=== PATIENT | female | born 1955 | race African-American/Black ===

== ENCOUNTER 2017-04-29 17:00 | Emergency (ER) | payer BC ==
[2017-04-29 17:32] VITALS: BP 146/86; PULSE 86; TEMP 100.6; BMI 28.5
--- NOTE | 2017-04-29 17:44 | PDOC ---
History of Present Illness - General History Source: Patient Exam Limitations: No Limitations - History of Present Illness Initial Comments: 04/29/17 18:10 The patient is a 61 year old female, with a significant past medical history of hypertension, who presents to the emergency department with flu-like symptoms since this morning. The patient reports associated subjective fever, chills, diffuse body aches, dry cough, diaphoresis and sore throat. Patient reports taking an over the counter cough suppressant for her symptoms with mild relief. She reports nausea, 1 episode of nonbloody/nonbilious emesis, and diarrhea, but denies any abdominal pain or constipation. Patient reports she did receive her flu shot this year. Patient endorses chest pain secondary to coughing, but denies any shortness of breath, or palpitations. She denies any flank pain, dysuria, hematuria, frequency, or urgency. Patient reports she has been eating well. She denies any recent travel or sick contacts. Allergies: NKDA Past Surgical History: None reported Social History: Non smoker. No ETOH or recreational drug use. <Sherley Daniel - Last Filed: 04/29/17 18:10> <Alexander Payne - Last Filed: 05/03/17 07:54> - General Chief Complaint: Cold Symptoms Stated Complaint: FLU Time Seen by Provider: 04/29/17 17:43 Past History <Sherley Daniel - Last Filed: 04/29/17 18:10> - Past Medical History Anemia: No Asthma: No Cancer: No Cardiac Disorders: No CVA: No COPD: No CHF: No Dementia: No Diabetes: No GI Disorders: Yes (H/O POLYPS) Disorders: No HTN: Yes Hypercholesterolemia: No Liver Disease: No Seizures: No Thyroid Disease: No - Surgical History Abdominal Surgery: No Appendectomy: No Cardiac Surgery: No Cholecystectomy: No Lung Surgery: No Neurologic Surgery: No Orthopedic Surgery: No - Immunization History Immunization Up to Date: Yes - Suicide/Smoking/Psychosocial Hx Smoking Status: Yes Smoking History: Never smoked Have you smoked in the past 12 months: No Number of Cigarettes Smoked Daily: 0 Cigars Per Day: 0 Hx Alcohol Use: No Drug/Substance Use Hx: No Substance Use Type: None Hx Substance Use Treatment: No <Alexander Payne - Last Filed: 05/03/17 07:54> - Past Medical History Allergies/Adverse Reactions: Allergies Allergy/AdvReac Type Severity Reaction Status Date / Time No Known Allergies Allergy Verified 04/29/17 17:24 Home Medications: Ambulatory Orders Losartan/Hydrochlorothiazide [Losartan-Hctz 100-12.5 mg Tab] 1 each PO DAILY 19/03 Aspirin [Aspirin EC] 81 mg PO DAILY 04/29/17 Cholecalciferol (Vitamin D3) [Vitamin D3] 2,000 unit PO DAILY 04/29/17 Metoprolol Succinate [Toprol XL -] 25 mg PO DAILY 04/29/17 Multivitamin/Iron/Folic Acid [Centrum Women Tablet] 1 each PO DAILY 04/29/17 Ondansetron [Zofran Odt -] 4 mg SL TID PRN #10 od.tablet 04/29/17 Oseltamivir Phosphate [Tamiflu] 75 mg PO BID #10 capsule 04/29/17 Vitamin B Complex [B Complex] 1 each PO DAILY 04/29/17 Review of Systems - Review of Systems Able to Perform ROS?: Yes Comments:: 04/29/17 18:10 CONSTITUTIONAL: Present: fever, chills, diaphoresis Absent: no fatigue EYES: Absent: visual changes ENT: Present: sore throat Absent: ear pain CARDIOVASCULAR: Absent: chest pain, no palpitations RESPIRATORY: Present: cough Absent: no SOB GI: Present: nausea, vomiting, diarrhea Absent: abdominal pain, no constipation GENITOURINARY: Absent: dysuria, no frequency, no hematuria MUSKULOSKELETAL: Present: diffuse body aches Absent: back pain, no myalgia SKIN: Absent: rash NEURO: Absent: headache <Daniel,Giomilsy - Last Filed: 04/29/17 18:10> *Physical Exam - Vital Signs Last Vital Signs Temp Pulse Resp BP Pulse Ox 100.6 F H 86 16 146/86 99 04/29/17 17:23 04/29/17 17:23 04/29/17 17:23 04/29/17 17:23 04/29/17 17:23 - Physical Exam Comments: 04/29/17 18:12 GENERAL: Well-appearing, well-nourished. No apparent distress. HEENT: Normocephalic, atraumatic. PERRL, EOM intact. Mild pharyngeal injection, but no posterior oropharynx exudates. CARDIOVASCULAR: Normal S1, S2. Regular rate and rhythm. PULMONARY: Clear to auscultation bilaterally. No wheezing, rales, or ronchi. ABDOMEN: Soft, non-distended, non-tender. EXTREMITIES: Normal ROM in all four extremities. No gross deformities. SKIN: Warm, dry. No rash NEUROLOGICAL: No focal neurological deficits. <Sherley Daniel - Last Filed: 04/29/17 18:10> - Vital Signs Last Vital Signs Temp Pulse Resp BP Pulse Ox 100.6 F H 86 16 146/86 99 04/29/17 17:23 04/29/17 17:23 04/29/17 17:23 04/29/17 17:23 04/29/17 17:23 <Alexander Payne - Last Filed: 05/03/17 07:54> Medical Decision Making - Medical Decision Making Patient with flulike symptoms for one day. No respiratory distress. No abdominal distress, other than mild nausea. Patient appears well otherwise Zofran and Tamiflu prescribed. Rest and fluids. Follow-up if symptoms worsen. Fully ambulatory and in no distress upon discharge with her daughter. <Alexander Payne - Last Filed: 05/03/17 07:54> *DC/Admit/Observation/Transfer - Attestations Scribe Attestion: 04/29/17 18:13 Documentation prepared by Sherley Daniel, acting as medical aide for Alexander Ingram MD. <Sherley Daniel - Last Filed: 04/29/17 18:10> - Discharge Dispostion Admit: No <Alexander Payne - Last Filed: 05/03/17 07:54> Diagnosis at time of Disposition: Viral syndrome - Discharge Dispostion Disposition: HOME Condition at time of disposition: Stable - Prescriptions Prescriptions: Ondansetron [Zofran Odt -] 4 mg SL TID PRN #10 od.tablet PRN Reason: Nausea And/Or Vomiting Oseltamivir Phosphate [Tamiflu] 75 mg PO BID #10 capsule - Patient Instructions Printed Discharge Instructions: DI for Viral Syndrome Additional Instructions: Rest, lots of fluids, light diet, medications as directed. You will need to take acetaminophen, Tylenol, Advil, ibuprofen, Motrin, or Aleve for fever and body aches in addition to the medication prescribed. Return to ER if symptoms worsen otherwise follow-up with your primary care physician in 2 days. - Post Discharge Activity Forms/Work/School Notes: Back to Work
== END 2017-04-29 18:07 | disposition home or self-care (01) ==
LOC: FER 17:00
DX: I10 Essential (primary) hypertension (principal)
CPT/HCPCS: 99281-25

== ENCOUNTER 2019-01-19 14:18 | Emergency (ER) | payer BC ==
[2019-01-19 14:59] VITALS: BMI 28.5
--- NOTE | 2019-01-19 15:16 | PDOC ---
History of Present Illness - General Chief Complaint: Respiratory Stated Complaint: CONGESTED, COUGHING Time Seen by Provider: 01/19/19 14:18 - History of Present Illness Initial Comments: 01/19/19 17:40 Pt is a 63 y/o F with a PMH of HTN who presents to our ER due to ~5 days of coughing. Cough is productive of whitish phelgm. Pt states that she experienced a coughing episode last night which lasted longer than usual and this is what prompted her to come to our ED. Pt states she has tried Alleve medication for her cough which has partially alleviated her cough. States that she was recently given a new bottle of cologne from her daughter which may have precipitated her coughing. Denies shortness of breath, chest pain, n/v/d. Endorsing nasal congestion, sore throat, and watery eyes. Received flu vaccine 2 weeks ago. SocialHX- Denies Tobacco or alcohol use FH- Mother CAD, HTN Father No known health issues () Past History - Past Medical History Allergies/Adverse Reactions: Allergies Allergy/AdvReac Type Severity Reaction Status Date / Time No Known Allergies Allergy Verified 01/19/19 14:33 Home Medications: Ambulatory Orders Losartan/Hydrochlorothiazide [Losartan-Hctz 100-12.5 mg Tab] 1 each PO DAILY 19/03 Aspirin [Aspirin EC] 81 mg PO DAILY 04/29/17 Cholecalciferol (Vitamin D3) [Vitamin D3] 2,000 unit PO DAILY 04/29/17 Metoprolol Succinate [Toprol XL -] 25 mg PO DAILY 04/29/17 Multivitamin/Iron/Folic Acid [Centrum Women Tablet] 1 each PO DAILY 04/29/17 Ondansetron [Zofran Odt -] 4 mg SL TID PRN #10 od.tablet 04/29/17 Oseltamivir Phosphate [Tamiflu] 75 mg PO BID #10 capsule 04/29/17 Vitamin B Complex [B Complex] 1 each PO DAILY 04/29/17 Albuterol Sulfate Inhaler - [Ventolin Hfa Inhaler -] 1 - 2 inh PO Q4H PRN #1 inhaler 01/19/19 Inhaler, Assist Devices [Space Chamber Plus] 1 each MC PRN #1 spacer 01/19/19 Anemia: No Asthma: No Cancer: No Cardiac Disorders: No CVA: No COPD: No CHF: No Dementia: No Diabetes: No GI Disorders: Yes (H/O POLYPS) Disorders: No HTN: Yes Hypercholesterolemia: No Liver Disease: No Seizures: No Thyroid Disease: No - Surgical History Abdominal Surgery: No Appendectomy: No Cardiac Surgery: No Cholecystectomy: No Lung Surgery: No Neurologic Surgery: No Orthopedic Surgery: No - Immunization History Immunization Up to Date: Yes - Psycho Social/Smoking Cessation Hx Smoking Status: Yes Smoking History: Never smoked Have you smoked in the past 12 months: No Number of Cigarettes Smoked Daily: 0 Cigars Per Day: 0 Hx Alcohol Use: No Drug/Substance Use Hx: No Substance Use Type: None Hx Substance Use Treatment: No Review of Systems - Review of Systems Able to Perform ROS?: Yes Constitutional: No: Chills, Fever, Night Sweats HEENTM: Yes: Tearing, Nose Congestion, Throat Pain Respiratory: Yes: Cough, Wheezing. No: Shortness of Breath, SOB with Exertion, SOB at Rest Cardiac (ROS): No: Chest Pain ABD/GI: No: Constipated, Diarrhea Neurological: No: Weakness *Physical Exam - Vital Signs Last Vital Signs Temp Pulse Resp BP Pulse Ox 98.4 F 61 18 150/75 99 01/19/19 14:33 01/19/19 14:33 01/19/19 14:33 01/19/19 14:33 01/19/19 14:33 - Physical Exam Comments: 01/19/19 17:47 AAOx3 NAD EOMI Sclera Clear. No sinus tenderness. Pharynx clear, no exudates appreciated. Tender Cervical lymphadenopathy CTA b/l RRR S1S2 NDNT Heart Score/ECG Review - ECG Impressions Comment:: Sinus 60 bpm, nl axis, nl interval, lvh, no acute st/t wave findings, t wave inversions III which are nonspecific ED Treatment Course - LABORATORY CBC & Chemistry Diagram: 01/19/19 15:50 01/19/19 15:50 Medical Decision Making - Medical Decision Making CBC w/ diff, CMP, CXR -No WBC elevation. CXR clear. No infiltrates or increased interstitial markings appreciated. Costophrenic angles clear. -Pt administered Duoneb, Robitussin with + relief in symptoms. -Pt d/c with instructions to follow up with PMD and use Albuterol inhaler PRN. Discharge - Discharge Information Problems reviewed: Yes Clinical Impression/Diagnosis: Cough Condition: Stable Disposition: HOME - Additional Discharge Information Prescriptions: Albuterol Sulfate Inhaler - [Ventolin Hfa Inhaler -] 1 - 2 inh PO Q4H PRN #1 inhaler PRN Reason: Short Of Breath/Wheezing Inhaler, Assist Devices [Space Chamber Plus] 1 each MC PRN #1 spacer - Follow up/Referral Referrals: Mell Chavez MD [Primary Care Provider] - - Patient Discharge Instructions Patient Printed Discharge Instructions: DI for Asthma -- Adult Additional Instructions: Please see your primary care doctor this week. You were treated for asthma like symptoms. An albuterol inhaler has been sent to your pharmacy. Please use this as directed. Please return to the emergency room if your symptoms do jot improve or if they worsen. - Post Discharge Activity
[2019-01-19] MEDS ORDERED: ALBUTEROL SO4 0.083% IH SOL 2.5 MG/3 ML VIAL.NEB. NEB ONE ×2 (15:25→15:38)
[2019-01-19] MEDS ORDERED: guaiFENesin/D-METHORPHAN HB 10 ML UNIT-DOSE CUPS PO ONE (15:26)
[2019-01-19] MEDS ORDERED: guaiFENesin 200 MG/10 ML 10 ML UNIT-DOSE CUPS ONE (15:38)
--- NOTE | 2019-01-19 15:59 | PDOC ---
Attending Attestation - Resident Resident Name: Adarsh Wood - ED Attending Attestation I have performed the following: I have examined & evaluated the patient, The case was reviewed & discussed with the resident, I agree w/resident's findings & plan, Exceptions are as noted - HPI HPI: 01/19/19 15:57 63yo female with cough x 1 week. Denies f/c. C/o nasal congestion and sore throat from coughing. No n/v/d. No cp. States she had the flu vaccine 2 weeks ago. Pt denies body aches. Pt is nontoxic in appearance. - Physicial Exam PE: 01/19/19 15:57 Gen: aaox3, nad heent: Posterior pharynx clear, nares clear, mmm, dentures to upper teeth neck: supple, small anterior cervical chain lymphadenopathy lungs: cta b/l abd: soft, nt/nd +bs ext: no c/c/e - Medical Decision Making 01/19/19 15:58 a/p: 63yo female with cough x 1 week -suspect viral URI -pt is nontoxic in appearance -will send labs, ekg, cxr -will give neb and robitussin -will monitor and reassess 01/19/19 16:22 cxr clear no elevated wbc 01/19/19 16:37 chem reviewed and stable stable for dc to home with outpt follow up Heart Score/ECG Review - ECG Intrepretation Comment:: 01/19/19 15:59 sinus at 60, nl axcis, nl interval, lvh, no acute st/t wave findings, t wave inversions III which are nonspecific
[2019-01-19 16:01] LABS: BASO % 1.5 % (0-2.0); HEMATOCRIT 38.7 % (32.4-45.2); HEMOGLOBIN 13.6 GM/dL (10.7-15.3); LYMPH % 42.4 % (8-40); MCH 31.8 pg (25.7-33.7); MCHC 35.2 g/dl (32.0-36.0); MEAN CELL VOLUME 90.5 fl (80-96); MEAN PLT VOLUME 7.6 fl (7.5-11.1); MONO % 8.8 % (3.8-10.2); NEUT % 44.3 % (42.8-82.8); PLATELET COUNT 285 K/MM3 (134-434); RBC 4.28 M/mm3 (3.60-5.2); RDW 13.9 % (11.6-15.6)
[2019-01-19 16:24] LABS: ALBUMIN 3.3 g/dl (3.4-5.0); BILIRUBIN,TOTAL 0.2 mg/dL (0.2-1); CALCIUM 8.7 mg/dL (8.5-10.1); POTASSIUM 3.6 mmol/L (3.5-5.1); TOT PROT 6.4 g/dl (6.4-8.2)
[2019-01-19] MEDS: FLUTICASONE PROP 0.05% 16 GM NASAL SPRAY NS ONE ×2 (16:46→16:52)
[2019-01-19 17:22] VITALS: BP 136/78; PULSE 89; TEMP 98.5
--- NOTE | 2019-01-21 10:24 | EKG ---
Test Reason : Blood Pressure : / mmHG Vent. Rate : 060 BPM Atrial Rate : 060 BPM P-R Int : 170 ms QRS Dur : 090 ms QT Int : 410 ms P-R-T Axes : 044 -19 010 degrees QTc Int : 410 ms NORMAL SINUS RHYTHM MINIMAL VOLTAGE CRITERIA FOR LVH, MAY BE NORMAL VARIANT BORDERLINE ECG WHEN COMPARED WITH ECG OF 18-NOV-2011 15:52, NO SIGNIFICANT CHANGE WAS FOUND Confirmed by KIRA MCCOY, JOSE ([id number]) on 01/21/2019 10:23:41 AM Referred By: Confirmed By:JOSE MALONE MD
== END 2019-01-19 17:22 | disposition home or self-care (01) ==
LOC: JER 14:18
PROC: 3E0F7GC Introduction of Other Therapeutic Substance into Respiratory Tract, Via Natural or Artificial Opening (ICD-10-PCS; principal; 2019-01-19)
DX: R05 Cough (principal); I10 Essential (primary) hypertension; R07.0 Pain in throat
CPT/HCPCS: 36415; 71045-TC-FY; 80053; 85025; 93005; 93010; 99282-25

== ENCOUNTER 2020-02-07 15:54 | Emergency (ER) | payer BC | END 2020-02-07 17:09 | disposition home or self-care (01) | LOC: JVIRT 15:54 | DX: U07.1 COVID-19 (principal) | CPT/HCPCS: C9803; Q3014-GT; U0003 ==

== ENCOUNTER 2020-02-17 15:54 | Emergency (ER) | payer BC | END 2020-02-17 16:31 | disposition home or self-care (01) | LOC: JVIRT 15:54 | DX: Z03.818 Encounter for observation for suspected exposure to other biological agents ruled out (principal) | CPT/HCPCS: C9803; G2012-GT; U0003 ==

== ENCOUNTER 2020-03-16 17:01 | Emergency (ER) | payer BC ==
[2020-03-16 17:35] VITALS: BP 161/83; PULSE 79; TEMP 98.3; BMI 28.1
== END 2020-03-16 22:42 | disposition home or self-care (01) ==
LOC: JER 17:01
DX: Z03.818 Encounter for observation for suspected exposure to other biological agents ruled out (principal); I10 Essential (primary) hypertension
CPT/HCPCS: 99283-25; C9803; U0003

== ENCOUNTER 2020-06-17 21:56 | Emergency (ER) | payer BC ==
[2020-06-17 22:05] VITALS: BP 162/86; PULSE 72; TEMP 98; BMI 27.3
== END 2020-06-18 00:08 | disposition home or self-care (01) ==
LOC: JER 21:56
DX: M79.661 Pain in right lower leg (principal)
CPT/HCPCS: 93971-TC; 99284-25

== ENCOUNTER 2020-07-10 10:00 | Observation (INO) | payer BC ==
[2020-07-10 11:27] LABS: BASO % 0.4 % (0-2.0); EOS % 0.8 % (0-4.5); HEMOGLOBIN 13.4 GM/dL (10.7-15.3); MCH 30.3 pg (25.7-33.7); MCHC 33.5 g/dl (32.0-36.0); MEAN CELL VOLUME 90.5 fl (80-96); NEUT % 73.8 % (42.8-82.8); PLATELET COUNT 275 K/MM3 (134-434); RBC 4.42 M/mm3 (3.60-5.2); RDW 14.5 % (11.6-15.6); WHITE BLOOD COUNT 6.5 K/mm3 (4.0-10.0)
[2020-07-10 11:59] LABS: CHLORIDE 109 mmol/L (98-107); SODIUM 142 mmol/L (136-145)
[2020-07-10 12:01] LABS: CALCIUM 9.1 mg/dL (8.5-10.1)
[2020-07-10 12:02] LABS: ALBUMIN 3.3 g/dl (3.4-5.0); ANION GAP 5 MMOL/L (8-16); BLOOD UREA NITROGEN 13.2 mg/dL (7-18); CO2 28 mmol/L (21-32); GLUCOSE,RANDOM 123 mg/dL (74-106)
[2020-07-10 12:05] LABS: CREATININE 0.9 mg/dL (0.55-1.3); SGOT/AST 32 U/L (15-37); SGPT/ALT 29 U/L (13-61)
[2020-07-10 12:07] LABS: BILIRUBIN,TOTAL 0.4 mg/dL (0.2-1); TOT PROT 6.6 g/dl (6.4-8.2)
[2020-07-10 12:08] LABS: ALK PHOS 84 U/L (45-117)
[2020-07-10] MEDS ORDERED: LOSARTAN POTASSIUM 50 MG TABLET PO SCH (16:00)
[2020-07-10] MEDS ORDERED: HYDROCHLOROTHIAZIDE 12.5 MG CAPSULE (FP) PO SCH (16:00)
[2020-07-10] MEDS ORDERED: ENOXAPARIN NA (PORCINE) 40 MG/0.4 ML DISP.SYRIN SQ SCH (16:00)
[2020-07-10] MEDS ORDERED: HYDROCHLOROTHIAZIDE 25 MG TABLET (FP) ONE (17:31)
[2020-07-10] MEDS ORDERED: LOSARTAN POTASSIUM 50 MG TABLET ONE (17:31)
[2020-07-10] MEDS ORDERED: ENOXAPARIN NA (PORCINE) 40 MG/0.4 ML DISP.SYRIN SQ ONE (17:31)
[2020-07-11 02:27] VITALS: BMI 31.3
[2020-07-11 08:48] LABS: MAGNESIUM 2.2 mg/dL (1.8-2.4)
[2020-07-11 08:51] LABS: CHOLESTEROL 150 mg/dL (50-200); PHOSPHOROUS 3.2 mg/dL (2.5-4.9); TRIGLYCERIDES 100 mg/dL (0-150)
[2020-07-11 08:52] LABS: LDL CHOLESTEROL (ONLY SJRH) 80 mg/dL (5-100)
[2020-07-11 08:54] LABS: HDL CHOLESTEROL 49 mg/dL (40-60)
[2020-07-11] MEDS ORDERED: ASPIRIN COATED 81 MG TABLET.EC PO SCH (10:00)
[2020-07-11] MEDS ORDERED: LOSARTAN POTASSIUM 50 MG TABLET PO SCH (10:00)
[2020-07-11] MEDS: ENOXAPARIN NA (PORCINE) 40 MG/0.4 ML DISP.SYRIN SQ SCH (10:19)
[2020-07-11] MEDS: ASPIRIN COATED 81 MG TABLET.EC PO SCH (10:19)
[2020-07-12] MEDS: ASPIRIN COATED 81 MG TABLET.EC PO SCH (09:40)
[2020-07-12] MEDS: ENOXAPARIN NA (PORCINE) 40 MG/0.4 ML DISP.SYRIN SQ SCH (09:40)
[2020-07-12 10:58] VITALS: BP 114/65; PULSE 68; TEMP 98.5
[2020-07-12] MEDS ORDERED: LOSARTAN POTASSIUM 50 MG TABLET PO SCH (18:00)
== END 2020-07-12 13:25 | disposition home or self-care (01) ==
LOC: JER 10:00 → INTOOBSV 15:19 → JERBED 15:19 → J4W 07-11 01:45
PROVIDERS: ADMIT Student in an Organized Health Care Education/Training Program; ATTEND Internal Medicine
PROC: 3E023GC Introduction of Other Therapeutic Substance into Muscle, Percutaneous Approach (ICD-10-PCS; principal; 2020-07-10)
DX: R07.89 Other chest pain (principal); R11.2 Nausea with vomiting, unspecified; I10 Essential (primary) hypertension; H43.399 Other vitreous opacities, unspecified eye; Z86.16 Personal history of COVID-19; Z29.9 Encounter for prophylactic measures, unspecified
CPT/HCPCS: 36415; 71045-TC-FY; 71275-TC; 74174-TC; 80053; 80061; 82962; 83721; 83735; 84100; 84443; 84484; 85025; 93005; 93010; 99285-25; C9803; G0378; Q9967; U0003; U0005

== ENCOUNTER 2021-02-05 16:08 | Emergency (ER) | payer OTHER, BC ==
[2021-02-05 16:15] VITALS: BP 154/76; PULSE 70; TEMP 98; BMI 29.6
[2021-02-05] MEDS ORDERED: DIPHTH,PERTUSS(ACELL),TET 0.5 ML DISP.SYRIN IM ONE ×2 (16:34→16:38)
[2021-02-05] MEDS ORDERED: ACETAMINOPHEN 500 MG TABLET (FP) PO ONE (16:34)
[2021-02-05] MEDS ORDERED: ACETAMINOPHEN 500 MG TABLET (FP) ONE (16:38)
== END 2021-02-05 18:05 | disposition home or self-care (01) ==
LOC: FER 16:08
PROC: 3E0234Z Introduction of Serum, Toxoid and Vaccine into Muscle, Percutaneous Approach (ICD-10-PCS; principal; 2021-02-05)
DX: M25.561 Pain in right knee (principal); M25.512 Pain in left shoulder; M54.50 Low back pain, unspecified; W19.XXXA Unspecified fall, initial encounter; Y92.9 Unspecified place or not applicable
CPT/HCPCS: 73030-TC-LT-FY; 73562-TC-LT-FY; 73562-TC-RT-FY; 90471; 90715; 99284-25

== ENCOUNTER 2021-02-13 12:04 | Emergency (ER) | payer OTHER, BC ==
[2021-02-13 12:13] VITALS: TEMP 98.4; BMI 30.5
[2021-02-13 13:44] LABS: BASO % 1.2 % (0-2.0); EOS % 2.1 % (0-4.5); HEMATOCRIT 40.4 % (32.4-45.2); HEMOGLOBIN 13.5 GM/dL (10.7-15.3); LYMPH % 40.4 % (8-40); MCH 29.6 pg (25.7-33.7); MCHC 33.4 g/dl (32.0-36.0); MEAN CELL VOLUME 88.6 fl (80-96); MEAN PLT VOLUME 7.2 fl (7.5-11.1); MONO % 8.3 % (3.8-10.2); PLATELET COUNT 283 10^3/uL (134-434); RBC 4.56 M/mm3 (3.60-5.2); RDW 14.6 % (11.6-15.6); WHITE BLOOD COUNT 5.8 K/mm3 (4.0-10.0)
[2021-02-13 13:52] LABS: CHLORIDE 110 mmol/L (98-107); SODIUM 144 mmol/L (136-145)
[2021-02-13 13:56] LABS: ALBUMIN 3.2 g/dl (3.4-5.0); ANION GAP 4 MMOL/L (8-16); BLOOD UREA NITROGEN 16.3 mg/dL (7-18); CALCIUM 9.1 mg/dL (8.5-10.1); CO2 30 mmol/L (21-32)
[2021-02-13 13:57] LABS: GLUCOSE,RANDOM 99 mg/dL (74-106)
[2021-02-13 13:59] LABS: SGOT/AST 17 U/L (15-37); SGPT/ALT 37 U/L (13-61)
[2021-02-13 14:00] LABS: CREATININE 0.9 mg/dL (0.55-1.3)
[2021-02-13 14:01] LABS: BILIRUBIN,TOTAL 0.2 mg/dL (0.2-1)
[2021-02-13 14:02] LABS: ALK PHOS 94 U/L (45-117)
[2021-02-13 14:52] VITALS: BP 138/89; PULSE 65
== END 2021-02-13 14:50 | disposition home or self-care (01) ==
LOC: JER 12:04
DX: R42 Dizziness and giddiness (principal)
CPT/HCPCS: 36415; 71046-TC-FY; 80053; 82550; 82553; 84484; 85025; 93005; 93010; 99284-25

== ENCOUNTER 2021-06-06 13:49 | Emergency (ER) | payer OTHER, BC ==
[2021-06-06 14:03] VITALS: BMI 28.1
[2021-06-06] MEDS ORDERED: ACETAMINOPHEN 500 MG TABLET (FP) PO ONE (14:36)
[2021-06-06] MEDS ORDERED: SODIUM CHLORIDE 0.9% 1000 ML INFUS.BAG IV ONE (15:00)
[2021-06-06] MEDS ORDERED: ACETAMINOPHEN 500 MG TABLET (FP) ONE (15:07)
[2021-06-06] MEDS ORDERED: METOCLOPRAMIDE HCL INJECTION 10 MG/2 ML VIAL IVPUSH ONE (15:08)
[2021-06-06 15:13] LABS: HEMATOCRIT 40.3 % (32.4-45.2); HEMOGLOBIN 13.6 GM/dL (10.7-15.3); LYMPH % 41.8 % (8-40); MCH 29.9 pg (25.7-33.7); MCHC 33.7 g/dl (32.0-36.0); MEAN CELL VOLUME 88.6 fl (80-96); MEAN PLT VOLUME 7.6 fl (7.5-11.1); MONO % 11.5 % (3.8-10.2); NEUT % 43.7 % (42.8-82.8); PLATELET COUNT 248 10^3/uL (134-434); RBC 4.55 M/mm3 (3.60-5.2); RDW 14.7 % (11.6-15.6); WHITE BLOOD COUNT 5.3 K/mm3 (4.0-10.0)
[2021-06-06 15:33] LABS: ALBUMIN 3.4 g/dl (3.4-5.0); BLOOD UREA NITROGEN 14.3 mg/dL (7-18)
[2021-06-06] MEDS ORDERED: METOCLOPRAMIDE HCL INJECTION 10 MG/2 ML VIAL ONE (15:34)
[2021-06-06 15:36] LABS: CREATININE 0.9 mg/dL (0.55-1.3)
[2021-06-06 15:38] LABS: BILIRUBIN,TOTAL 0.4 mg/dL (0.2-1)
[2021-06-06 16:26] VITALS: BP 112/72; PULSE 53; TEMP 98.1
== END 2021-06-06 16:40 | disposition home or self-care (01) ==
LOC: JER 13:49
PROC: 3E033GC Introduction of Other Therapeutic Substance into Peripheral Vein, Percutaneous Approach (ICD-10-PCS; principal; 2021-06-06)
DX: R42 Dizziness and giddiness (principal); R51.9 Headache, unspecified
CPT/HCPCS: 36415; 71046-TC-FY; 80053; 85025; 93005; 93010; 99285-25

== ENCOUNTER 2021-09-14 20:19 | Emergency (ER) | payer OTHER, BC ==
[2021-09-14 20:49] VITALS: TEMP 98.8; BMI 28.1
[2021-09-14 22:05] LABS: BASO % 0.5 % (0-2.0); EOS % 1.8 % (0-4.5); HEMATOCRIT 38.7 % (32.4-45.2); HEMOGLOBIN 13.1 GM/dL (10.7-15.3); LYMPH % 37.8 % (8-40); MCH 30.2 pg (25.7-33.7); MCHC 33.8 g/dl (32.0-36.0); MEAN CELL VOLUME 89.4 fl (80-96); MEAN PLT VOLUME 7.8 fl (7.5-11.1); MONO % 10.7 % (3.8-10.2); NEUT % 49.2 % (42.8-82.8); PLATELET COUNT 258 10^3/uL (134-434); RBC 4.33 M/mm3 (3.60-5.2); RDW 14.4 % (11.6-15.6); WHITE BLOOD COUNT 5.9 K/mm3 (4.0-10.0)
[2021-09-14 22:19] LABS: ALBUMIN 3.4 g/dl (3.4-5.0); CALCIUM 8.9 mg/dL (8.5-10.1)
[2021-09-14 22:20] LABS: BLOOD UREA NITROGEN 16.7 mg/dL (7-18)
[2021-09-14 22:24] LABS: BILIRUBIN,TOTAL 0.3 mg/dL (0.2-1); TOT PROT 6.5 g/dl (6.4-8.2)
[2021-09-15 01:19] VITALS: BP 112/68; PULSE 68
== END 2021-09-15 01:22 | disposition home or self-care (01) ==
LOC: JER 20:19
DX: R03.0 Elevated blood-pressure reading, without diagnosis of hypertension (principal)
CPT/HCPCS: 36415; 70450-TC; 71046-TC-FY; 80053; 84484; 85025; 93005; 93010; 99285-25

== ENCOUNTER 2021-10-22 20:08 | Emergency (ER) | payer OTHER, BC ==
[2021-10-22 20:16] VITALS: TEMP 98; BMI 29.7
[2021-10-22] MEDS ORDERED: SODIUM CHLORIDE 0.9% 500 ML INFUS.BAG IV ONE (21:16)
[2021-10-22] MEDS ORDERED: METOCLOPRAMIDE HCL INJECTION 10 MG/2 ML VIAL IVPB ONE (21:16)
[2021-10-22] MEDS ORDERED: METOCLOPRAMIDE HCL 10 MG TABLET (FP) PO ONE ×2 (21:36→21:39)
[2021-10-22 22:55] VITALS: BP 129/79; PULSE 57; RESP 14
== END 2021-10-22 23:20 | disposition home or self-care (01) ==
LOC: JER 20:08
PROC: 3E033NZ Introduction of Analgesics, Hypnotics, Sedatives into Peripheral Vein, Percutaneous Approach (ICD-10-PCS; principal; 2021-10-22)
DX: R51.9 Headache, unspecified (principal); I10 Essential (primary) hypertension
CPT/HCPCS: 70450-TC; 93005; 93010; 99284-25

== ENCOUNTER 2021-11-24 17:51 | Emergency (ER) | payer OTHER, BC ==
[2021-11-24 18:34] VITALS: BP 118/78; PULSE 69; RESP 18; TEMP 98.2; BMI 29.6
[2021-11-24] MEDS ORDERED: METHOCARBAMOL 500 MG TABLET PO ONE (19:15)
[2021-11-24] MEDS ORDERED: KETOROLAC TROMETHAMINE 30 MG/1 ML VIAL IM ONE (19:15)
[2021-11-24] MEDS ORDERED: KETOROLAC TROMETHAMINE 30 MG/1 ML VIAL ONE (19:17)
[2021-11-24] MEDS ORDERED: METHOCARBAMOL 500 MG TABLET ONE (19:17)
== END 2021-11-24 19:31 | disposition home or self-care (01) ==
LOC: JERFT 17:51
PROC: 3E0233Z Introduction of Anti-inflammatory into Muscle, Percutaneous Approach (ICD-10-PCS; principal; 2021-11-24)
DX: Z04.1 Encounter for examination and observation following transport accident (principal); V89.2XXA Person injured in unspecified motor-vehicle accident, traffic, initial encounter; Y92.9 Unspecified place or not applicable
CPT/HCPCS: 99283-25

== ENCOUNTER 2022-09-30 16:09 | Emergency (ER) | payer OTHER, BC ==
[2022-09-30 16:15] VITALS: TEMP 98; BMI 29.4
[2022-09-30 18:20] LABS: EOS % 2.4 % (0-4.5); HEMATOCRIT 41.9 % (32.4-45.2); HEMOGLOBIN 13.8 GM/dL (10.7-15.3); LYMPH % 42.5 % (8-40); MCH 29.3 pg (25.7-33.7); MCHC 32.8 g/dl (32.0-36.0); MEAN CELL VOLUME 89.4 fl (80-96); MEAN PLT VOLUME 8.4 fl (7.5-11.1); MONO % 8.9 % (3.8-10.2); NEUT % 45.2 % (42.8-82.8); PLATELET COUNT 281 10^3/uL (134-434); RBC 4.69 M/mm3 (3.60-5.2); RDW 13.9 % (11.6-15.6); WHITE BLOOD COUNT 5.3 K/mm3 (4.0-10.0)
[2022-09-30 18:29] LABS: POTASSIUM 3.5 mmol/L (3.5-5.1)
[2022-09-30 18:31] LABS: CALCIUM 9.5 mg/dL (8.5-10.1)
[2022-09-30 18:32] LABS: ALBUMIN 3.5 g/dl (3.4-5.0); BLOOD UREA NITROGEN 15.6 mg/dL (7-18); MAGNESIUM 2.3 mg/dL (1.8-2.4)
[2022-09-30 18:35] LABS: CREATININE 1.1 mg/dL (0.55-1.3); PHOSPHOROUS 3.3 mg/dL (2.5-4.9)
[2022-09-30 18:36] LABS: TOT PROT 6.7 g/dl (6.4-8.2)
[2022-09-30 18:37] LABS: BILIRUBIN,TOTAL 0.3 mg/dL (0.2-1)
[2022-09-30 21:23] LABS: EPI CELLS 5 /uL (0-25.1); HYALINE CASTS 0 /uL (0-3.1); URINE APPEARANCE CLEAR; URINE BACTERIA 127 /uL (0-1359); URINE BILIRUBIN NEGATIVE (NEGATIVE); URINE COLOR YELLOW; URINE GLUCOSE (UA) NEGATIVE (NEGATIVE); URINE KETONE NEGATIVE (NEGATIVE); URINE LEUK ESTERASE TRACE (NEGATIVE); URINE NITRITE NEGATIVE (NEGATIVE); URINE PROTEIN NEGATIVE (NEGATIVE); URINE RBC 3 /uL (0-23.9); URINE UROBILINOGEN 0.2 mg/dL (0.2-1.0); URINE WBC 4 /uL (0-25.8)
[2022-09-30] MEDS ORDERED: CEFTRIAXONE 1 MG in DEXTROSE 5%-WATER - 50 ML IVPB ONE (21:32)
[2022-09-30] MEDS ORDERED: CEFTRIAXONE 1 GM/50 ML BAG ONE (21:44)
[2022-09-30 22:29] VITALS: BP 131/68; PULSE 55; RESP 20
== END 2022-09-30 22:29 | disposition home or self-care (01) ==
LOC: JER 16:09
DX: R42 Dizziness and giddiness (principal); R20.2 Paresthesia of skin; N39.0 Urinary tract infection, site not specified
CPT/HCPCS: 36415; 70450-TC; 80053; 81003; 83735; 84100; 84484; 85025; 87086; 93005; 93010; 99285-25

== ENCOUNTER 2023-03-05 19:16 | Emergency (ER) | payer OTHER, BC ==
[2023-03-05 19:31] VITALS: TEMP 98.4; BMI 28.8
[2023-03-05] MEDS ORDERED: METOCLOPRAMIDE HCL 10 MG TABLET (FP) PO ONE ×2 (22:24→22:27)
[2023-03-05] MEDS ORDERED: ACETAMINOPHEN 500 MG TABLET (FP) PO ONE (22:24)
[2023-03-05] MEDS ORDERED: ACETAMINOPHEN 500 MG TABLET (FP) ONE (22:28)
[2023-03-05 23:11] VITALS: BP 119/70; PULSE 58; RESP 18
== END 2023-03-05 23:15 | disposition home or self-care (01) ==
LOC: JER 19:16
DX: R51.9 Headache, unspecified (principal); I10 Essential (primary) hypertension; R11.10 Vomiting, unspecified
CPT/HCPCS: 70450-TC; 99284-25

== ENCOUNTER 2023-10-16 21:14 | Inpatient (IN) | payer OTHER, BC ==
[2023-10-16 21:38] VITALS: BMI 28.6
[2023-10-16] MEDS ORDERED: ACETAMINOPHEN INJECTION 100 ML IVPB ONE (22:51)
[2023-10-16 22:54] LABS: BASO % 0.6 % (0-2.0); EOS % 1.1 % (0-4.5); HEMATOCRIT 40.2 % (32.4-45.2); HEMOGLOBIN 13.7 GM/dL (10.7-15.3); LYMPH % 26.9 % (8-40); MCH 30.6 pg (25.7-33.7); MEAN PLT VOLUME 7.6 fl (7.5-11.1); MONO % 8.9 % (3.8-10.2); NEUT % 62.5 % (42.8-82.8); PLATELET COUNT 283 10^3/uL (134-434); RBC 4.47 M/mm3 (3.60-5.2); RDW 14.8 % (11.6-15.6)
[2023-10-16] MEDS: ACETAMINOPHEN 1000 MG/100 ML BAG IVPB ONE (23:02)
[2023-10-16 23:14] LABS: POTASSIUM 5.8 mmol/L (3.5-5.1)
[2023-10-16 23:16] LABS: ALBUMIN 3.3 g/dl (3.4-5.0); BLOOD UREA NITROGEN 17.3 mg/dL (7-18)
[2023-10-16 23:19] LABS: CREATININE 1.2 mg/dL (0.55-1.3)
[2023-10-16 23:21] LABS: BILIRUBIN,TOTAL 0.3 mg/dL (0.2-1)
[2023-10-17 00:58] LABS: POTASSIUM 3.4 mmol/L (3.5-5.1)
[2023-10-17 00:59] LABS: CALCIUM 8.8 mg/dL (8.5-10.1)
[2023-10-17 01:00] LABS: BLOOD UREA NITROGEN 17.5 mg/dL (7-18)
[2023-10-17] MEDS ORDERED: METOCLOPRAMIDE HCL INJECTION 10 MG/2 ML VIAL ONE (02:18)
[2023-10-17] MEDS: METOCLOPRAMIDE HCL INJECTION 10 MG/2 ML VIAL IVPUSH STA (02:25)
[2023-10-17] MEDS: POTASSIUM CHLORIDE ORAL LIQUID 20 MEQ/15 ML PO ONE (05:38)
[2023-10-17] MEDS: ASPIRIN 325 MG TABLET PO ONE (05:38)
[2023-10-17] MEDS: KCL 10 MEQ IVPB 10 MEQ/100 ML INFUS.BAG IVPB SCH (05:39)
[2023-10-17 06:15] LABS: MAGNESIUM 1.9 mg/dL (1.8-2.4)
[2023-10-17 07:50] LABS: BASO % 0.9 % (0-2.0); HEMATOCRIT 40.7 % (32.4-45.2); HEMOGLOBIN 13.6 GM/dL (10.7-15.3); LYMPH % 41.2 % (8-40); MCH 30.7 pg (25.7-33.7); MCHC 33.4 g/dl (32.0-36.0); MEAN PLT VOLUME 8.8 fl (7.5-11.1); MONO % 7.7 % (3.8-10.2); NEUT % 49.2 % (42.8-82.8); RBC 4.42 M/mm3 (3.60-5.2); RDW 14.5 % (11.6-15.6)
[2023-10-17 08:02] LABS: POTASSIUM 4.5 mmol/L (3.5-5.1)
[2023-10-17 08:05] LABS: CALCIUM 8.7 mg/dL (8.5-10.1)
[2023-10-17 08:06] LABS: ALBUMIN 3.2 g/dl (3.4-5.0); BLOOD UREA NITROGEN 15.8 mg/dL (7-18)
[2023-10-17 08:09] LABS: CREATININE 0.9 mg/dL (0.55-1.3); PHOSPHOROUS 3.6 mg/dL (2.5-4.9)
[2023-10-17 08:10] LABS: BILIRUBIN,TOTAL 0.4 mg/dL (0.2-1); TOT PROT 6.3 g/dl (6.4-8.2)
[2023-10-17 08:15] LABS: PLATELET COUNT 216 10^3/uL (134-434)
[2023-10-17] MEDS: metoPROLOL SUCCINATE 25 MG TAB.SR.24H (FP) PO SCH (09:45)
[2023-10-17] MEDS: ENOXAPARIN NA (PORCINE) 40 MG/0.4 ML DISP.SYRIN SQ SCH (09:45)
[2023-10-17] MEDS: LOSARTAN POTASSIUM 50 MG TABLET PO SCH (09:45)
[2023-10-17 10:32] LABS: PLATELET ESTIMATE ADEQUATE
[2023-10-17 12:46] LABS: URINE APPEARANCE CLEAR; URINE BILIRUBIN NEGATIVE (NEGATIVE); URINE COLOR YELLOW; URINE GLUCOSE (UA) NEGATIVE (NEGATIVE); URINE KETONE NEGATIVE (NEGATIVE); URINE LEUK ESTERASE NEGATIVE (NEGATIVE); URINE NITRITE NEGATIVE (NEGATIVE); URINE PROTEIN NEGATIVE (NEGATIVE); URINE UROBILINOGEN 0.2 mg/dL (0.2-1.0)
[2023-10-17 13:16] VITALS: RESP 18
[2023-10-17 15:32] VITALS: BP 122/75; PULSE 51; TEMP 98.1
[2023-10-17] MEDS ORDERED: HYDROCHLOROTHIAZIDE 12.5 MG CAPSULE (FP) PO SCH (22:00)
[2023-10-17] MEDS ORDERED: HYDROCHLOROTHIAZIDE 25 MG TABLET (FP) PO SCH (22:00)
[2023-10-18] MEDS ORDERED: ASPIRIN COATED 81 MG TABLET.EC PO SCH (10:00)
== END 2023-10-17 18:03 | disposition home or self-care (01) | DRG 305 ==
LOC: JER 21:14 → JERBED 10-17 01:32 → J4S 10-17 04:02 → OBSVTOIN 10-17 04:29
PROVIDERS: ADMIT Internal Medicine; ATTEND Internal Medicine
DX: I16.1 Hypertensive emergency (principal); I10 Essential (primary) hypertension; R07.89 Other chest pain; E87.6 Hypokalemia
CPT/HCPCS: 36415; 71046-TC-FY; 80048; 80053; 80061; 81003; 83735; 84100; 84439; 84443; 84484; 85025; 93005; 93010; 93306-TC; 99285-25; G0378; J0131

== ENCOUNTER 2023-11-06 20:41 | Emergency (ER) | payer OTHER, BC ==
[2023-11-06 20:53] VITALS: TEMP 98.5; BMI 29.0
[2023-11-06] MEDS ORDERED: ACETAMINOPHEN INJECTION 100 ML IVPB ONE (21:52)
[2023-11-06] MEDS: ACETAMINOPHEN 1000 MG/100 ML BAG IVPB ONE (22:16)
[2023-11-06 22:33] LABS: BASO % 0.3 % (0-2.0); EOS % 1.7 % (0-4.5); HEMATOCRIT 39.8 % (32.4-45.2); HEMOGLOBIN 13.2 GM/dL (10.7-15.3); LYMPH % 46.5 % (8-40); MCH 30.4 pg (25.7-33.7); MCHC 33.2 g/dl (32.0-36.0); MEAN CELL VOLUME 91.6 fl (80-96); MEAN PLT VOLUME 7.6 fl (7.5-11.1); MONO % 8.7 % (3.8-10.2); NEUT % 42.8 % (42.8-82.8); PLATELET COUNT 258 10^3/uL (134-434); RBC 4.34 M/mm3 (3.60-5.2); RDW 14.1 % (11.6-15.6); WHITE BLOOD COUNT 5.7 K/mm3 (4.0-10.0)
[2023-11-06 22:47] LABS: POTASSIUM 3.8 mmol/L (3.5-5.1)
[2023-11-06 22:48] LABS: CALCIUM 9.1 mg/dL (8.5-10.1)
[2023-11-06 22:50] LABS: ALBUMIN 3.3 g/dl (3.4-5.0); BLOOD UREA NITROGEN 14.5 mg/dL (7-18)
[2023-11-06 22:53] LABS: CREATININE 1.2 mg/dL (0.55-1.3)
[2023-11-06 22:55] LABS: BILIRUBIN,TOTAL 0.2 mg/dL (0.2-1); TOT PROT 6.4 g/dl (6.4-8.2)
[2023-11-07 02:01] VITALS: BP 133/74; PULSE 60; RESP 16
== END 2023-11-07 02:03 | disposition home or self-care (01) ==
LOC: JER 20:41
PROC: 3E033NZ Introduction of Analgesics, Hypnotics, Sedatives into Peripheral Vein, Percutaneous Approach (ICD-10-PCS; principal; 2023-11-06)
DX: R07.2 Precordial pain (principal); R51.9 Headache, unspecified; F41.9 Anxiety disorder, unspecified
CPT/HCPCS: 36415; 71045-TC-FY; 80053; 84484; 85025; 93005; 93010; 96374; 99285-25; J0131

== ENCOUNTER 2023-12-11 12:02 | Emergency (ER) | payer OTHER, BC ==
[2023-12-11 12:21] VITALS: TEMP 97.7; BMI 28.8
[2023-12-11] MEDS ORDERED: hydrALAZINE HCL 20 MG/ML VIAL ONE (13:35)
[2023-12-11] MEDS ORDERED: METHOCARBAMOL 500 MG TABLET ONE (13:35)
[2023-12-11] MEDS ORDERED: METOCLOPRAMIDE HCL INJECTION 10 MG/2 ML VIAL ONE (13:35)
[2023-12-11] MEDS: hydrALAZINE HCL 20 MG/ML VIAL IVPUSH ONE (13:44)
[2023-12-11] MEDS: METOCLOPRAMIDE HCL INJECTION 10 MG/2 ML VIAL IVPB ONE (13:44)
[2023-12-11] MEDS: METHOCARBAMOL 750 MG TAB PO ONE (13:45)
[2023-12-11 13:46] LABS: BASO % 0.8 % (0-2.0); EOS % 1.6 % (0-4.5); HEMATOCRIT 44.5 % (32.4-45.2); HEMOGLOBIN 14.6 GM/dL (10.7-15.3); LYMPH % 45.9 % (8-40); MCHC 32.8 g/dl (32.0-36.0); MEAN CELL VOLUME 91.7 fl (80-96); MEAN PLT VOLUME 7.6 fl (7.5-11.1); MONO % 8.9 % (3.8-10.2); NEUT % 42.8 % (42.8-82.8); PLATELET COUNT 297 10^3/uL (134-434); RBC 4.86 M/mm3 (3.60-5.2); RDW 14.5 % (11.6-15.6); WHITE BLOOD COUNT 4.6 K/mm3 (4.0-10.0)
[2023-12-11 13:52] LABS: INR 0.99 (0.83-1.09); PROTHROMBIN TIME (PATIENT) 11.2 SEC (9.7-13.0)
[2023-12-11 14:06] LABS: POTASSIUM 3.5 mmol/L (3.5-5.1)
[2023-12-11 14:07] LABS: CALCIUM 9.9 mg/dL (8.5-10.1)
[2023-12-11 14:08] LABS: ALBUMIN 3.9 g/dl (3.4-5.0); BLOOD UREA NITROGEN 13.7 mg/dL (7-18)
[2023-12-11 14:11] LABS: CREATININE 0.9 mg/dL (0.55-1.3)
[2023-12-11 14:13] LABS: BILIRUBIN,TOTAL 0.4 mg/dL (0.2-1); TOT PROT 7.4 g/dl (6.4-8.2)
[2023-12-11] MEDS: SODIUM CHLORIDE 0.9% 500 ML INFUS.BAG IV ONE (14:43)
[2023-12-11 14:47] LABS: URINE APPEARANCE CLEAR; URINE BILIRUBIN NEGATIVE (NEGATIVE); URINE COLOR YELLOW; URINE GLUCOSE (UA) NEGATIVE (NEGATIVE); URINE KETONE NEGATIVE (NEGATIVE); URINE LEUK ESTERASE NEGATIVE (NEGATIVE); URINE NITRITE NEGATIVE (NEGATIVE); URINE PROTEIN NEGATIVE (NEGATIVE); URINE UROBILINOGEN 0.2 mg/dL (0.2-1.0)
[2023-12-11 14:56] VITALS: RESP 15
[2023-12-11 15:47] LABS: HIV INTERPRETATION NEGATIVE (NEGATIVE)
[2023-12-11 15:52] VITALS: BP 131/76; PULSE 75
== END 2023-12-11 16:35 | disposition home or self-care (01) ==
LOC: JER 12:02
PROC: 3E033GC Introduction of Other Therapeutic Substance into Peripheral Vein, Percutaneous Approach (ICD-10-PCS; principal; 2023-12-11)
PROC: 3E033GC Introduction of Other Therapeutic Substance into Peripheral Vein, Percutaneous Approach (ICD-10-PCS; 2023-12-11)
DX: I10 Essential (primary) hypertension (principal); R07.89 Other chest pain; R51.9 Headache, unspecified; R35.0 Frequency of micturition; Z20.822 Contact with and (suspected) exposure to COVID-19
CPT/HCPCS: 0241U-QW; 36415; 70450-TC; 71045-TC-FY; 80053; 81003; 84484; 85025; 85610; 86803; 87086; 87389; 93005; 93010; 96374; 96375; 99285-25